=== PATIENT | female | born 1990 | race Two or more races ===

== ENCOUNTER 2018-10-28 06:35 | Day surgery (SDC) | payer OTHER | END 2018-10-28 17:10 | disposition home or self-care (01) | LOC: CIR.AMB 06:35 | PROVIDERS: Specialist | PROC: 0HQV0ZZ Repair Bilateral Breast, Open Approach (ICD-10-PCS; principal; 2018-10-28 07:00) | DX: N65.1 Disproportion of reconstructed breast (principal) ==

== ENCOUNTER 2023-05-10 02:11 | Outpatient (CLI) | payer OTHER ==
[2023-05-10] MEDS ORDERED: PRENATAL TABLE1 EAC1 PO (02:21)
[2023-05-10] MEDS ORDERED: RINGERS SOLUTION,LACTATED 1,000 ML IV SCH (02:30)
[2023-05-10 02:54] LABS: HEMATOCRIT 38.5 % (36.0-45.00); HEMOGLOBIN 13.2 g/dL (12.0-15.00); MEAN CELL VOLUME 86.4 fL (80.00-100.00); MEAN CORPUSCULAR HEMOGLOBIN 29.7 pg (27.00-32.0); MEAN CORPUSCULAR HGB CONC 34.4 g/dl (32.0-36.0); PLATELET COUNT 250 K/uL (150-450); RED BLOOD COUNT 4.45 M/uL (4.00-6.00); RED CELL DISTRIBUTION WIDTH 15.6 % (11.5-14.5)
[2023-05-10 03:00] LABS: PH,URINE 6.5 (5.0-8.0); URINE APPEARANCE Cloudy; URINE BILIRRUBIN Negative (NEGATIVE); URINE BLOOD Large; URINE COLOR Yellow; URINE GLUCOSE Negative (NEGATIVE); URINE LEUKOCYTE Trace; URINE NITRATE Negative; URINE PROTEIN Trace (NEGATIVE); URINE UROBILINOGEN 0.2 E.U./dl
[2023-05-10 03:03] LABS: URINE BACTERIA 1277.6 uL (0.0-1933); URINE EPITHELIAL CELLS 29.6 uL (0.0-38.8); URINE RBC 56.4 uL (0.0-20.8); URINE WBC 32.4 uL (0.0-23.2)
[2023-05-10 03:33] LABS: INR 0.95; PARTIAL THROMBOPLASTIN TIME 28.4 SECONDS (22.0-34.0)
[2023-05-10] MEDS ORDERED: CEFAZOLIN SODIUM 1,000 MG VIAL IV SCH (08:00)
[2023-05-11] MEDS ORDERED: OXYTOCIN 500 ML IV SCH (09:00)
== END 2023-05-10 16:28 | disposition still patient (30) ==
LOC: OBS/DEL 02:11
PROVIDERS: Obstetrics & Gynecology; ATTEND Obstetrics & Gynecology
DX: O26.893 Other specified pregnancy related conditions, third trimester (principal)

== ENCOUNTER 2023-05-10 16:49 | Inpatient (IN) | payer OTHER ==
[~2023-05-10] VITALS: Ht 165.1 cm; Wt 102.5 kg
[~2023-05-10 16:49] MED LIST: PRENATAL TABLE1 EAC1 PO
[2023-05-10] MEDS ORDERED: CEFAZOLIN SODIUM 1,000 MG VIAL IV SCH (20:00)
[2023-05-11] MEDS ORDERED: OXYTOCIN 500 ML IV SCH (09:00)
[2023-05-11] MEDS ORDERED: MORPHINE SULFATE 4 MG/ML VIAL IV STA (14:39)
[2023-05-11] MEDS ORDERED: OXYTOCIN 10 UNITS/ML VIAL ONE ×2 (15:11→19:56)
[2023-05-11] MEDS ORDERED: CEFAZOLIN SODIUM 1,000 MG VIAL ONE (15:11)
[2023-05-11] MEDS ORDERED: ERYTHROMYCIN BASE 3.5 GM OINT...G. OP ONE (15:11)
[2023-05-11] MEDS ORDERED: MORPHINE SULFATE 4 MG/ML CARTRIDGE IV PRN (17:45)
[2023-05-11] MEDS ORDERED: SIMETHICONE 125 MG CAPSULE PO SCH (18:00)
[2023-05-11] MEDS ORDERED: CEFAZOLIN SODIUM 1,000 MG VIAL IV SCH (18:00)
[2023-05-11] MEDS ORDERED: ERYTHROMYCIN BASE 1 GM TUBE OP ONE (18:00)
[2023-05-11] MEDS ORDERED: OXYTOCIN 1,000 ML IV SCH (18:45)
[2023-05-11] MEDS ORDERED: RINGERS SOLUTION,LACTATED 1,000 ML IV SCH (18:45)
[2023-05-11 21:54] LABS: HEMOGLOBIN 13.3 g/dL (12.0-15.00); MEAN CELL VOLUME 86.7 fL (80.00-100.00); MEAN CORPUSCULAR HEMOGLOBIN 29.5 pg (27.00-32.0); PLATELET COUNT 241 K/uL (150-450); RED CELL DISTRIBUTION WIDTH 14.8 % (11.5-14.5)
[2023-05-12] MEDS ORDERED: IBUprofen 800 MG TABLET PO PRN (09:00)
[2023-05-12] MEDS ORDERED: DOCUSATE SODIUM 100MG CAP PO SCH (09:00)
== END 2023-05-14 12:07 | disposition home or self-care (01) | DRG 788 ==
LOC: OB/GYN → LDR 16:49 → O/R 05-11 16:28 → OB/GYN 05-11 17:14
PROVIDERS: ADMIT Obstetrics & Gynecology; ATTEND Obstetrics & Gynecology
PROC: 4A1HXCZ Monitoring of Products of Conception, Cardiac Rate, External Approach (ICD-10-PCS; 2023-05-10)
PROC: 10D00Z1 Extraction of Products of Conception, Low, Open Approach (ICD-10-PCS; principal; 2023-05-11 16:00)
DX: O32.8XX0 Maternal care for other malpresentation of fetus, not applicable or unspecified (principal); O48.0 Post-term pregnancy; O75.89 Other specified complications of labor and delivery; Z3A.40 40 weeks gestation of pregnancy; Z37.0 Single live birth; Z20.822 Contact with and (suspected) exposure to COVID-19